=== PATIENT | female | born 1975 | race American Indian/Alaskan Native ===

== ENCOUNTER 2019-10-21 09:10 | Emergency (ER) | payer SELFPAY ==
[2019-10-21 09:22] VITALS: BP 130/85
--- NOTE | 2019-10-21 11:54 | Emergency Department Report ---
Chief Complaint: Dental/Oral Stated Complaint: MOUTH PAIN Time Seen by Provider: 10/21/19 10:43 - HPI History of Present Illness: This is a 44-year-old female who presents to the emergency room with dental pain for several months. Patient states "I am here to get my 2 teeth pulled". Patient states is been several months with pain but is now becoming unbearable. She denies follow-up with a dentist. She denies drooling, fever, difficulty swallowing or chewing, chills, nausea, vomiting, difficulty digesting foods. - ROS Review of Systems: HEENT: Dental pain to the upper All other systems reviewed without complaints. - Exam Vital Signs: Vital Signs 10/21/19 09:20 Temperature 98.2 F Pulse Rate 128 H Respiratory 16 Rate Blood Pressure 130/85 O2 Sat by Pulse 100 Oximetry Vital Signs 10/21/19 10/21/19 09:20 12:38 Temperature 98.2 F Pulse Rate 128 H 98 H Respiratory 16 16 Rate Blood Pressure 130/85 O2 Sat by Pulse 100 100 Oximetry Physical Exam: HEENT: No gingival swelling, #12 and #4 TTP, no palpated abscess or cyst pockets, uvula midline, mucous membrane moist. All other systems reviewed and within normal limits. MSE screening note: Focused history and physical exam performed. Due to findings the following was ordered: ED Medical Decision Making - Medical Decision Making This is a 44-year-old female that presents with toothache for several months. Vitals are stable and patient in no acute distress. Patient is stable and was examined by me. Tooth #12 and #4 TTP, no facial swelling, gingival swelling, palpated abscess, or palpated pus pockets. This is a nonemergent complaint. Patient given list of emergency dental clinics to follow-up. Patient discharged home stable with strict return instructions. ED Disposition for MSE Disposition: MED SCREENING EXAM-LEFT Condition: Stable Instructions: Toothache (ED) Referrals: [facility] [Outside] - 3-5 Days [facility] [Outside] - 3-5 Days [facility] [Outside] - 3-5 Days Forms: Work/School Release Form(ED) Time of Disposition: 11:54
== END 2019-10-21 12:31 | disposition left against medical advice (07) ==
LOC: ED 09:10
DX: K08.89 Other specified disorders of teeth and supporting structures (principal)
CPT/HCPCS: 99281

== ENCOUNTER 2019-10-28 08:28 | Emergency (ER) | payer SELFPAY ==
[2019-10-28 09:46] LABS: Mucus,Urine FEW /HPF; White Blood Cell Casts,Urine 3 /LPF
[2019-10-28 09:49] LABS: HCG Qualitative,Urine Negative (Negative)
[2019-10-28 10:16] LABS: Bilirubin,Urine Negative (Negative); Blood,Urine Trace (Negative); Color,Urine Straw (Yellow)
[2019-10-28 10:17] LABS: Protein,Urine >500 mg/dL (Negative); Urobilinogen,Urine < 2.0 mg/dL (<2.0)
--- NOTE | 2019-10-28 10:48 | Emergency Department Report ---
ED Female HPI - General Chief complaint: Rectal Pain Stated complaint: RECTAL PAIN/NO CYCLE Time Seen by Provider: 10/28/19 10:47 Source: patient Mode of arrival: Ambulatory Limitations: No Limitations - History of Present Illness Initial comments: 44-year-old female with no significant past medical history presents to the ER today complaining of rectal pain which she has been having for the past 2 months. Patient states that she is saw her primary care doctor once and was told it was possibly hemorrhoids and was given a prescription for suppository. Patient states that she has been using a suppository without much relief. Patient states that the pain is worse with bowel movement. She does admit to straining with bowel movement but denies any hard stools. She denies any associated abdominal pain, rectal bleeding, or rectal swelling. She denies any rectal intercourse Patient also complains that she has not had a menstrual cycle in 2 months. She states that she has not taken a test at home because she has not been sexually active. MD Complaint: other (Rectal Pain; No menstrual Cycle) -: month(s) (2 mths) - Related Data Previous Rx's Medication Instructions Recorded Last Taken Type Lidocaine 2% Uroject [Xylocaine 2% 10 ml MM TID PRN #10 jelly.appl 10/28/19 Unknown Rx Urojet] Valacyclovir HCl [Valacyclovir] 1,000 mg PO Q12H #14 tablet 10/28/19 Unknown Rx metroNIDAZOLE [Flagyl] 500 mg PO Q12HR #14 tab 10/28/19 Unknown Rx Allergies Allergy/AdvReac Type Severity Reaction Status Date / Time No Known Allergies Allergy Verified 10/21/19 09:28 ED Review of Systems ROS: Stated complaint: RECTAL PAIN/NO CYCLE Other details as noted in HPI Constitutional: denies: chills, fever Gastrointestinal: other (rectal pain). denies: abdominal pain, nausea, vomiting, diarrhea, constipation, hematochezia Genitourinary: abnormal menses. denies: urgency, dysuria, frequency, hematuria, dyspareunia Musculoskeletal: denies: back pain ED Past Medical Hx - Past Medical History Previous Medical History?: No - Social History Smoking Status: Never Smoker - Medications Home Medications: Home Medications Medication Instructions Recorded Confirmed Last Taken Type Lidocaine 2% Uroject [Xylocaine 2% 10 ml MM TID PRN #10 jelly.appl 10/28/19 Unknown Rx Urojet] Valacyclovir HCl [Valacyclovir] 1,000 mg PO Q12H #14 tablet 10/28/19 Unknown Rx metroNIDAZOLE [Flagyl] 500 mg PO Q12HR #14 tab 10/28/19 Unknown Rx ED Physical Exam - General Limitations: No Limitations General appearance: alert, in no apparent distress - Head Head exam: Present: atraumatic, normocephalic - Eye Eye exam: Present: normal appearance, PERRL, EOMI - ENT ENT exam: Present: normal exam, normal orophraynx, mucous membranes moist - Respiratory Respiratory exam: Present: normal lung sounds bilaterally. Absent: respiratory distress - Cardiovascular Cardiovascular Exam: Present: regular rate, normal rhythm, normal heart sounds - GI/Abdominal GI/Abdominal exam: Present: soft. Absent: distended, tenderness - Rectal Rectal exam: Present: other (few shallow ulcers noted to anus and is very ttp. No apparent hemorrhoids. No swelling, induration or fluctuance. Stool color normal. ) - Neurological Exam Neurological exam: Present: alert, oriented X3, CN II-XII intact, normal gait - Psychiatric Psychiatric exam: Present: normal affect, normal mood - Skin Skin exam: Present: intact ED Medical Decision Making - Medical Decision Making Patient presents to the ER complaint of rectal pain for 2 months and no menstrual cycle for about 2 months. She denies any abdominal pain, rectal bleeding, abnormal vaginal symptoms or any other associated symptoms. She denies rectal intercourse. She denies as she reports not being sexually active with her . Rectal exam show shallow ulcerations which are very tender. No obvious hemorrhoids noted. there is no induration or fluctuance. Based on PE, pt will be treated for possible proctitis including HSV, Gonorrhea/chlamydia and with flagyl for other possible causes of proctitis. Patient will also be given referral to GI for colonscopy to r/o possible inflammatory bowel disease and other causes on rectal pain. Her urine here is negative. She will also be given referral to OBGYN for further assessment as to her not having a menstrual cycle for 2 months. Patient is not toxic, not ill-appearing, currently no acute distress. Her vital signs are stable. No further work-up indicated at this time. Patient is stable and appropriate for discharge. Critical care attestation.: If time is entered above; I have spent that time in minutes in the direct care of this critically ill patient, excluding procedure time. ED Disposition Clinical Impression: Amenorrhea, Proctitis Disposition: TO HOME OR SELFCARE Is pt being admited?: No Does the pt Need Aspirin: No Condition: Stable Instructions: Dysfunctional Uterine Bleeding (ED), Proctitis (ED) Prescriptions: metroNIDAZOLE [Flagyl] 500 mg PO Q12HR #14 tab Valacyclovir HCl [Valacyclovir] 1,000 mg PO Q12H #14 tablet Lidocaine 2% Uroject [Xylocaine 2% Urojet] 10 ml MM TID PRN #10 jelly.appl PRN Reason: pain Referrals: DERRELL PACHECO MD [Staff Physician] - 3-5 Days [facility], [Primary Care Provider] - 3-5 Days [facility] [Provider Group] - 3-5 Days Time of Disposition: 12:15
[2019-10-28] MEDS ORDERED: LIDOCAINE-MPF (1%) 10 MG/1 ML VIAL 5 ML INFILTRATI ONE (11:17)
[2019-10-28] MEDS ORDERED: AZITHROMYCIN 250 MG TAB PO ONE (11:18)
== END 2019-10-28 12:36 | disposition home or self-care (01) ==
LOC: ED 08:28
DX: K62.89 Other specified diseases of anus and rectum (principal); N91.2 Amenorrhea, unspecified; Z79.899 Other long term (current) drug therapy
CPT/HCPCS: 81001; 81025; 87086; 96372; 99283; J0696